=== PATIENT | male | born 1970 | race Caucasian/White ===

== ENCOUNTER 2023-06-27 09:41 | Emergency (ER) | payer OTHER ==
[~2023-06-27] VITALS: Ht 172.7 cm; Wt 122.4 kg
[2023-06-27 09:55] VITALS: O2SAT 96
[2023-06-27] MEDS: IBUPROFEN 600MG TABLET PO ONE (10:21)
[2023-06-27] MEDS ORDERED: NAPR220C61 MT (11:30)
[2023-06-27 12:07] VITALS: BP 117/76; PULSE 83; RESP 18; TEMP 98.3
== END 2023-06-27 12:10 | disposition home or self-care (01) ==
LOC: ER 09:41
DX: M79.672 Pain in left foot (principal); Z90.49 Acquired absence of other specified parts of digestive tract; Z98.890 Other specified postprocedural states
CPT/HCPCS: 73620; 99283